=== PATIENT | female | born 1945 | race Caucasian/White ===

== ENCOUNTER → 2023-06-12 12:29 | Outpatient (REF) | payer MEDICARE, OTHER, SELFPAY ==
[2023-06-12 13:06] VITALS: BP 149/87; BP_SYST 74
[2023-06-12 13:12] LABS: INR 1.13; PT 14.6 Sec (11.4-14.6)
[2023-06-12 16:00] LABS: Spinal Fluid Glucose 49 mg/dl (40-70); Spinal Fluid Protein 34 mg/dl (12-60)
[2023-06-12 16:58] LABS: CSF Clarity Clear; CSF Color Colorless; CSF Tube # 1; Red Cell Count/CSF 1 mm^3; White Cell Count/CSF 1 mm^3 (0-5)
== END ==
LOC: RADI 12:29
PROVIDERS: ATTENDING PHYSICIAN Nurse Practitioner Adult Health; FAMILY PHYSICIAN Internal Medicine
DX: G91.2 (Idiopathic) normal pressure hydrocephalus (principal); D68.8 Other specified coagulation defects
CPT/HCPCS: 36415; 62328; 82945; 84157; 85610; 89051

== ENCOUNTER 2023-06-12 15:09 | Outpatient (RCR) | payer MEDICARE, OTHER, SELFPAY | END 2023-06-12 23:59 | disposition home or self-care (01) | LOC: ROT 15:09 | PROVIDERS: ATTENDING PHYSICIAN Nurse Practitioner Adult Health; FAMILY PHYSICIAN Internal Medicine | DX: G91.2 (Idiopathic) normal pressure hydrocephalus (principal); Z73.6 Limitation of activities due to disability; R32 Unspecified urinary incontinence; F90.9 Attention-deficit hyperactivity disorder, unspecified type; R51.9 Headache, unspecified | CPT/HCPCS: 36415; 62328; 82945; 84157; 85610; 89051; 97163; 97164; 97166; 97168; 97530 ==

== ENCOUNTER → 2023-10-17 17:47 | Outpatient (REF) | payer MEDICARE, OTHER, SELFPAY ==
[2023-10-17 19:35] LABS: Urine Albumin Negative (Neg - Trace); Urine Bilirubin Negative (Negative); Urine Character Clear (Clear); Urine Color Yellow; Urine Glucose Negative (Negative); Urine Ketone Negative (Negative); Urine Leukocyte Negative (Negative); Urine Nitrite Negative (Negative); Urine Occult Blood Negative (Negative); Urine Urobilinogen Negative (Neg - 1+); Urine pH 6.5 (5.0-9.0)
== END ==
LOC: CLAB 17:47
PROVIDERS: ATTENDING PHYSICIAN Obstetrics & Gynecology
DX: N39.0 Urinary tract infection, site not specified (principal)
CPT/HCPCS: 81003; 87086

== ENCOUNTER 2023-11-26 11:01 | Outpatient (RCR) | payer MEDICARE, OTHER, SELFPAY | END 2023-11-26 23:59 | disposition home or self-care (01) | LOC: RPT 11:01 | PROVIDERS: ATTENDING PHYSICIAN Obstetrics & Gynecology; FAMILY PHYSICIAN Internal Medicine | DX: R15.9 Full incontinence of feces (principal); N39.41 Urge incontinence; R39.11 Hesitancy of micturition; Z73.6 Limitation of activities due to disability | CPT/HCPCS: 97110; 97161; 97530 ==

== ENCOUNTER 2023-12-30 10:06 | Outpatient (RCR) | payer MEDICARE, OTHER, SELFPAY | END 2023-12-30 23:59 | disposition home or self-care (01) | LOC: RPT 10:06 | PROVIDERS: ATTENDING PHYSICIAN Obstetrics & Gynecology; FAMILY PHYSICIAN Internal Medicine | DX: N39.41 Urge incontinence (principal); R15.9 Full incontinence of feces; R39.11 Hesitancy of micturition; Z73.6 Limitation of activities due to disability | CPT/HCPCS: 97110; 97530 ==

== ENCOUNTER 2024-01-27 10:02 | Outpatient (RCR) | payer MEDICARE, OTHER, SELFPAY | END 2024-01-27 23:59 | disposition home or self-care (01) | LOC: RPT 10:02 | PROVIDERS: ATTENDING PHYSICIAN Obstetrics & Gynecology; FAMILY PHYSICIAN Internal Medicine | DX: N39.41 Urge incontinence (principal); R15.9 Full incontinence of feces; R39.11 Hesitancy of micturition; Z73.6 Limitation of activities due to disability | CPT/HCPCS: 97110; 97112; 97140; 97530 ==

== ENCOUNTER → 2024-02-20 08:14 | Outpatient (REF) | payer MEDICARE, OTHER, SELFPAY | LOC: RAD 08:14 | PROVIDERS: ATTENDING PHYSICIAN Obstetrics & Gynecology; FAMILY PHYSICIAN Internal Medicine | DX: R15.9 Full incontinence of feces (principal); R19.8 Other specified symptoms and signs involving the digestive system and abdomen | CPT/HCPCS: 74270 ==

== ENCOUNTER → 2024-02-25 09:27 | Outpatient (REF) | payer MEDICARE, OTHER, SELFPAY | LOC: RAD 09:27 | PROVIDERS: ATTENDING PHYSICIAN Obstetrics & Gynecology; FAMILY PHYSICIAN Internal Medicine | DX: N31.9 Neuromuscular dysfunction of bladder, unspecified (principal); N39.8 Other specified disorders of urinary system; N39.41 Urge incontinence | CPT/HCPCS: 76770 ==

== ENCOUNTER 2024-02-26 08:09 | Outpatient (RCR) | payer MEDICARE, OTHER, SELFPAY | END 2024-02-26 23:59 | disposition home or self-care (01) | LOC: RPT 08:09 | PROVIDERS: ATTENDING PHYSICIAN Obstetrics & Gynecology; FAMILY PHYSICIAN Internal Medicine | DX: N39.41 Urge incontinence (principal); R15.9 Full incontinence of feces; R39.11 Hesitancy of micturition; Z73.6 Limitation of activities due to disability | CPT/HCPCS: 97110; 97530 ==

== ENCOUNTER → 2024-03-08 11:08 | Outpatient (REF) | payer MEDICARE, OTHER, SELFPAY | LOC: MRI 3T 11:08 | PROVIDERS: ATTENDING PHYSICIAN Physician Assistant Medical; FAMILY PHYSICIAN Internal Medicine | DX: G95.9 Disease of spinal cord, unspecified (principal); R26.81 Unsteadiness on feet; R29.2 Abnormal reflex; G93.89 Other specified disorders of brain | CPT/HCPCS: 72141 ==

== ENCOUNTER 2024-03-20 11:53 | Outpatient (RCR) | payer MEDICARE, OTHER, SELFPAY | END 2024-03-23 06:32 | disposition home or self-care (01) | LOC: RPT 11:53 | PROVIDERS: ATTENDING PHYSICIAN Obstetrics & Gynecology; FAMILY PHYSICIAN Internal Medicine | DX: N39.41 Urge incontinence (principal); R15.9 Full incontinence of feces; R39.11 Hesitancy of micturition; Z73.6 Limitation of activities due to disability | CPT/HCPCS: 97110; 97112; 97530 ==

== ENCOUNTER 2024-11-27 09:32 | Outpatient (RCR) | payer MEDICARE, OTHER, SELFPAY | END 2024-11-27 23:59 | disposition home or self-care (01) | LOC: ROT 09:32 | PROVIDERS: ATTENDING PHYSICIAN Nurse Practitioner Adult Health; FAMILY PHYSICIAN Internal Medicine | DX: R26.89 Other abnormalities of gait and mobility (principal); R41.3 Other amnesia; Z73.6 Limitation of activities due to disability; Z91.81 History of falling | CPT/HCPCS: 97110; 97112; 97162; 97167; 97530 ==

== ENCOUNTER → 2024-12-21 10:24 | Outpatient (REF) | payer MEDICARE, OTHER, SELFPAY | LOC: HWRAD 10:24 | PROVIDERS: ATTENDING PHYSICIAN Internal Medicine | DX: I12.9 Hypertensive chronic kidney disease with stage 1 through stage 4 chronic kidney disease, or unspecified chronic kidney disease (principal); N18.32 Chronic kidney disease, stage 3b | CPT/HCPCS: 93975 ==

== ENCOUNTER 2024-12-29 13:00 | Outpatient (RCR) | payer MEDICARE, OTHER, SELFPAY | END 2024-12-29 23:59 | disposition home or self-care (01) | LOC: ROT 13:00 | PROVIDERS: ATTENDING PHYSICIAN Nurse Practitioner Adult Health; FAMILY PHYSICIAN Internal Medicine | DX: R26.89 Other abnormalities of gait and mobility (principal); R41.3 Other amnesia; Z73.6 Limitation of activities due to disability; Z91.81 History of falling | CPT/HCPCS: 97110; 97112; 97530; 97535 ==

== ENCOUNTER 2025-01-11 14:22 | Emergency (ER) | payer MEDICARE, OTHER, SELFPAY ==
[2025-01-11] VITALS (9 sets, daily range): BP systolic 117–197; BP diastolic 69–111; PULSE 78–97; BMI 22.6
[2025-01-11 15:03] LABS: Hematocrit 38.1 % (37.0-47.0); Hemoglobin 11.8 g/dL (12.0-16.0); Mean Corp Hgb Conc. 31.0 g/dL (33.0-37.0); Mean Corpuscular Volume 89.0 fL (81.0-99.0); Nucleated Red Blood Cells % 0 %; Platelet Count 159 10^3/uL (130-400); Red Cell Dist. Width 13.2 % (11.5-14.5)
[2025-01-11 15:26] LABS: ALT (SGPT) 24 U/L (0-35); AST (SGOT) 38 U/L (14-36); Albumin 4.6 g/dl (3.5-5.0); Alkaline Phosphatase 83 U/L (38-126); Blood Urea Nitrogen 25 mg/dl (7-17); Calcium 9.5 mg/dl (8.4-10.2); Carbon Dioxide 23 mmol/L (22-30); Chloride 108 mmol/L (98-107); Glucose 90 mg/dl (70-99); Potassium 4.5 mmol/L (3.5-5.1); Sodium 138 mmol/L (135-145); Total Protein 7.0 g/dl (6.3-8.2); eGFR 46.62
--- NOTE | 2025-01-11 15:41 | ED.GENMED ---
History of Present Illness
General
Chief Complaint: Dizziness
Source: patient and spouse
Exam Limitations: none
Time Seen by Provider: 01/11/25 15:16
Nursing documentation reviewed up to this point in time: agreed with
History of Present Illness
History of Present Illness:
Patient to ED with complaint of dizziness, anxiety. States dizziness started today. She sustained a concussion 1.5yrs ago and since then has had memory issues. SHe follow with Neurology here - Dr. Jean. feels that she is increasingly
forgetful. She denies fever/chills,recent illness. Denies any shortness of breath chest pain or pressure. BP elevated on arrival to ED. Patient reports taking her medications this a.m. although is not certain.
Past History
Past History
ED Past Medical History: HTN, Hypercholesterolemia and Other (concussion, hydrocephaly)
ED Past Surgical History: None
Social History
Tobacco: Non-smoker
Personal:
Review of Systems
Review of Systems
All Other Systems: ROS reviewed and negative except as documented in HPI and ROS
Constitutional: Reports no symptoms
EENT: Reports no symptoms
Respiratory: Reports no symptoms
Cardiac: Reports no symptoms
ABD/GI: Reports no symptoms
: Reports no symptoms
Musculoskeletal: Reports no symptoms
Skin: Reports no symptoms
Neurological: Reports dizzy
Psychiatric: Reports no symptoms
Phy Exam
General Physical Exam
General Presentation: well appearing and no apparent distress
General age: appears stated age
General Skin: warm and dry
General Habitus: normal
General Mental: alert
Cardiovascular Exam
Cardiovascular Exam: regular rate/rhythm and no edema
Pulmonary Exam
Pulmonary Exam: lungs clear and no respiratory distress
Neurological Exam
Neurological Exam: alert, oriented x3, CN II-XII intact, no motor deficits, no sensory deficits and speech normal
NIH Stroke Score
Level of Consciousness: 0 - Alert
LOC questions: 0-Answers both correctly
LOC Commands: 0-Performs both correctly
Best Gaze: 0-Normal
Visual Del Real: 0=Normal, no visual loss
Facial palsy: 0=Normal, symmetrical
Motor - Right Arm: 0=No drift 10 seconds
Motor - Left Arm: 0=No drift 10 seconds
Motor - Right Le-No drift 5 seconds
Motor - Left Le-No drift 5 seconds
Limb Ataxia: 0-Absent
Sensation: 0-Normal
Best Language: 0-No aphasia
Dysarthria: 0-Normal
Extinction and Inattention: 0-No abnormality
Total Score:: 0
Musculoskeletal Exam
Musculoskeletal Exam: full ROM and neuro vasc intact
Skin Exam
Skin Exam: normal color, warm/dry and no rash
Psychiatric Exam
Psychiatric Exam: normal mood/affect and anxious
Course
Orders/Labs/Results
Orders:
Orders
01/11/25 14:40
CT Head W/o Iv Contrast Urgent
Comment:
Reason For Exam: confusion
01/11/25 14:44
CMP [Comprehensive Metabolic Panel] Urgent
Complete Blood Count/With Diff Urgent
01/11/25 15:53
Urinalysis Reflex To Culture Urgent
Date Specimen was Collected: 01/11/25
Time Specimen was Collected: 15:28
Urine Microscopic Reflex Cult Urgent
Urine Culture Urgent
ANTHONY Source: U
Specimen Description:
Date Specimen was Collected: 01/11/25
Time Specimen was Collected: 15:28
01/11/25 16:18
Orthostatic VS- Treatment ONCE
Abnormal Lab Results
01/11/25 01/11/25
14:44 15:53
Hgb 11.8 L g/dL
(12.0-16.0)
MCHC 31.0 L g/dL
(33.0-37.0)
MPV 11.4 H fL
(7.4-10.4)
Absolute Lymphs (auto) 1.0 L 10^3/uL
(1.2-3.4)
Lymphocytes % 19.1 L %
(20.5-51.1)
Chloride 108 H mmol/L
(98-107)
BUN 25 H mg/dl
(7-17)
Creatinine 1.2 H mg/dL
(0.6-1.0)
AST 38 H U/L
(14-36)
Leukocyte Esterase Rfl 1+ A
(Negative)
Urine Bacteria (Reflex) Few A
(Negative)
01/11/25 14:44
01/11/25 14:44
Vital Signs
Initial and Last Documented VS:
Initial Vital Signs
Temp Pulse Resp BP Pulse Ox
97.6 F 94 18 191/111 99
01/11/25 14:31 01/11/25 14:31 01/11/25 14:31 01/11/25 14:31 01/11/25 14:31
Last Documented Vital Signs
Temp Pulse Resp BP Pulse Ox
97.6 F 70 16 189/98 100
01/11/25 14:31 01/11/25 18:00 01/11/25 18:00 01/11/25 18:00 01/11/25 16:30
*Radiology
Radiology exam reviewed: radiology read reviewed
*Pulse Oximetry
SaO2: 99
Oxygen Mode of Delivery: Room air
Patient hypoxic: no
*Critical Care Note
Total Time (30-74mins, 75-104mins- exclusive of procedures): Not Applicable
Update Note
Update Note:
Patient to ED with complaint of dizziness dizziness, confusion. PMH of concussion and reports having periods of confusion feeling off balance is not unusual for her. Today she felt dizzy and this is not a typical symptom for her. Labs reviewed,
no concerning findings. UA negative for UTI. Head CT negative for acute findings. BP elevation noted. Orthostatic vital signs taken and reviewed. BP supine 193/101. BP standing 117/69. She states that this has been an ongoing issue for her
and that she continues to follow closely with her PCP to resolve this issue. Currently taking benazepril 10 mg daily. She reports compliance with this medication. BP on discharge 172/88 supine. Discussed blood pressure results with Dr. greenwood.
Will not change the benazepril dose at this visit but recommend close follow-up with PCP for continued monitoring. Patient is agreeable to this plan. Dizziness resolved shortly after arriving to ED and she has had no symptoms since. Will
discharge home with . She was given instructions on signs and symptoms to return to the emergency department and she was agreeable to plan.
ED Attending Note
-
Portions of this chart may have been created with voice recognition software.� Occasional wrong word or��sound alike� substitutions may have occurred due to the inherent limitations of voice recognition software.
Discharge Plan
Departure
Patient Disposition: Home (Routine Discharge)
Date of Disposition: 01/11/25
Time of Disposition: 17:45
Patient with high blood pressure during this ER visit?: No
Condition: Good
Covid-19: Not Applicable
Discharge Problem:
Dizziness
Instructions: Dizziness
Prescriptions:
No Action
fluvoxamine 50 mg Tablet
50 mg PO HS
benazepril 10 mg Tablet
10 mg PO DAILY
rosuvastatin [Crestor] 10 mg Tablet
10 mg PO DAILY
acetaminophen [Tylenol] 325 mg Tablet
650 mg PO Q6HPRN PRN (Reason: MILD PAIN)
Theragen Tablet
1 tab PO DAILY
dextroamphetamine-amphetamine [Adderall XR] 10 mg Capsule,Extended Release 24hr
10 mg PO DAILY
Referrals:
Torrey Berman I., DO [Family Provider, Internal Medicine] - Tomorrow
Activity Restrictions/Additional Instructions:
Return to the emergency department immediately for any changes in/worsening of your symptoms.
Interventions
Interventions:
*Risk Screen - Suicide Last Done: 01/11/25 18:02
*General Assessment Last Done: 01/11/25 15:44
*Neglect/Abuse Screening Last Done: 01/11/25 16:33
*ED- Fall Risk Assessment Last Done: 01/11/25 15:44
*ED COVID-19 Vaccine History Last Done: 01/11/25 15:44
*ED Influenza Vaccine History Last Done: 01/11/25 15:44
*Nursing Disposition Last Done: 01/11/25 18:02
ED- Neurological Assessment Last Done: 01/11/25 15:44
ED- Cardiac Assessment Last Done: 01/11/25 15:44
ED Swallowing Screen Last Done: 01/11/25 15:44
Discharge Date and Time
Discharge Date/Time: 01/11/25 18:12
Print Language: MALAY
[2025-01-11 16:24] LABS: Urine Character Clear (Clear)
[2025-01-11 16:31] LABS: Urine Red Blood Cell 0-2 /HPF (0-2); Urine White Cell 0-2 /HPF (0-5)
== END 2025-01-11 18:12 | disposition home or self-care (01) ==
LOC: EMR 14:22
PROVIDERS: Nurse Practitioner; Physician Assistant; EMERGENCY PHYSICIAN Emergency Medicine; FAMILY PHYSICIAN Internal Medicine
DX: R42 Dizziness and giddiness (principal); R41.0 Disorientation, unspecified; I10 Essential (primary) hypertension; E78.00 Pure hypercholesterolemia, unspecified; F41.9 Anxiety disorder, unspecified
CPT/HCPCS: 99284; 70450; 80053; 81003; 81015; 85025; 87086

== ENCOUNTER → 2025-01-14 14:37 | Outpatient (REF) | payer MEDICARE, OTHER, SELFPAY | LOC: DHSLP 14:37 | PROVIDERS: ATTENDING PHYSICIAN Internal Medicine; FAMILY PHYSICIAN Internal Medicine | DX: G47.30 Sleep apnea, unspecified (principal); R06.83 Snoring | CPT/HCPCS: 95800 ==

== ENCOUNTER 2025-01-29 09:11 | Outpatient (RCR) | payer MEDICARE, OTHER, SELFPAY | END 2025-01-29 23:59 | disposition home or self-care (01) | LOC: ROT 09:11 | PROVIDERS: ATTENDING PHYSICIAN Nurse Practitioner Adult Health; FAMILY PHYSICIAN Internal Medicine | DX: R26.89 Other abnormalities of gait and mobility (principal); R41.3 Other amnesia; Z73.6 Limitation of activities due to disability; Z91.81 History of falling | CPT/HCPCS: 97110; 97112; 97530; 97535; 97537 ==

== ENCOUNTER 2025-02-23 10:42 | Outpatient (RCR) | payer MEDICARE, OTHER, SELFPAY | END 2025-02-23 23:59 | disposition home or self-care (01) | LOC: ROT 10:42 | PROVIDERS: ATTENDING PHYSICIAN Nurse Practitioner Adult Health; FAMILY PHYSICIAN Internal Medicine | DX: R26.89 Other abnormalities of gait and mobility (principal); R41.3 Other amnesia; Z73.6 Limitation of activities due to disability; Z91.81 History of falling | CPT/HCPCS: 97530; 97535 ==

== ENCOUNTER 2025-03-26 07:17 | Outpatient (RCR) | payer MEDICARE, OTHER, SELFPAY | END 2025-03-30 10:53 | disposition home or self-care (01) | LOC: ROT 07:17 | PROVIDERS: ATTENDING PHYSICIAN Nurse Practitioner Adult Health; FAMILY PHYSICIAN Internal Medicine | DX: R26.89 Other abnormalities of gait and mobility (principal); R41.3 Other amnesia; Z73.6 Limitation of activities due to disability; Z91.81 History of falling | CPT/HCPCS: 97530; 97535 ==